=== PATIENT | male | born 1990 | race Caucasian/White ===

== ENCOUNTER 2016-11-16 15:43 | Emergency (ER) | payer BC ==
[2016-11-16 16:49] LABS: BASO % 0.1 % (0.0-1.0); EOS # 0.1 K/mm3 (0.0-0.50); EOS % 1.3 % (0.0-3.0); LARGE UNSTAINED CELL # 0.2 K/mm3 (0.0-0.4); LARGE UNSTAINED CELL % 1.8 % (0.0-4.0); LYMPH # 0.8 K/mm3 (1.5-6.5); MEAN CORPUSCULAR HEMOGLOBIN 27.4 pg (27.0-33.0); MEAN CORPUSCULAR HGB CONC 33.2 g/dl (32.0-36.5); MEAN CORPUSCULAR VOLUME 82.5 fl (80.0-96.0); MONO # 0.3 K/mm3 (0.0-0.8); MONO % 3.3 % (0.0-5.0); NEUTROPHILS # 7.2 K/mm3 (1.8-7.7); NEUTROPHILS % 84.5 % (36.0-66.0); PLATELET COUNT, AUTOMATED 177 k/mm3 (150-450); WHITE BLOOD COUNT 8.6 K/mm3 (4.0-10.0)
[2016-11-16 16:57] LABS: INR 1.18
--- NOTE | 2016-11-16 17:06 | REP ---
Duplex extremity venous ultrasound: Left lower extremity. History: Swelling of the left leg. Findings: The deep veins are anechoic and fully compressible from the groin to the popliteal fossa in the left lower extremity. Color flow imaging is homogeneous. Spectral Doppler interrogation demonstrates intact respiratory variation in flow and normal manual augmentation of flow. There is no evidence of deep vein thrombosis. Scanning over the area of redness in the left mid anterior browning region shows soft tissue edema. No abnormal fluid collection seen. Impression: Negative left lower extremity duplex venous ultrasound. No evidence of deep vein thrombosis. Signed by Ravi Cifuentes MD 11/16/2016 04:58 P
[2016-11-16] MEDS ORDERED: CEFTAROLINE FOSAMIL 600 MG VIAL (TEFLARO) As Ordered ONE (17:12)
[2016-11-16 17:14] LABS: ANION GAP 8 MEQ/L (8-16); BLOOD UREA NITROGEN 23 MG/DL (7-18); CARBON DIOXIDE LEVEL 25 MEQ/L (21-32); CHLORIDE LEVEL 104 MEQ/L (98-107); CREATININE FOR GFR 1.05 MG/DL (0.70-1.30); GLOMERULAR FILTRATION RATE > 60.0 (>60); GLUCOSE, FASTING 98 MG/DL (70-105); POTASSIUM SERUM 3.6 MEQ/L (3.5-5.1); SODIUM LEVEL 137 MEQ/L (136-145)
--- NOTE | 2016-11-16 19:07 | EDDOCDS ---
Physician Documentation [facility] Name: Jony Chambers Age: 26 yrs Sex: Male : 1990 Arrival Date: 11/16/2016 Time: 15:43 Bed I2 / M2 Private MD: Mahendra Campos P. Disposition: 11/16/16 18:30 Discharged to Home/Self Care. Impression: Cellulitis of left lower limb. - Condition is Stable. - Discharge Instructions: Cellulitis, Hypertension. - Prescriptions for Keflex 500 mg Oral Capsule - take 1 capsule by ORAL route every 6 hours for 10 days; 39 capsule. Bactrim DS 800- 160 mg Oral Tablet - take 1 tablet by ORAL route every 12 hours for 10 days; 19 tablet. - Work Release Form - 3 day, Medication Reconciliation, Local Pharmacy Hours form. - Follow up: Mahendra Campos; When: 1 - 2 days; Reason: Recheck today's complaints. Follow up: Emergency Department; When: As needed; Reason: Recheck today's complaints, Worsening of conditions. - Problem is new. - Symptoms are unchanged. - Notes: have leg rechecked in the next 48 hrs. if you develop high fevers, vomiting, or expanding redness return immediately to ER Historical: - Allergies: no known allergies; - Home Meds: 1. tramadol 50 mg Oral tab 2-3 time daily 2. Tylenol 500mg Oral 2 tabs every 8 hours as needed 3. naproxen 500 mg Oral tab 1 tab 2 times per day - PMHx: Hypertension; - PSHx: none; - Social history: Smoking status: Patient uses tobacco products, current some day smoker. Patient uses No barriers to communication noted, The patient speaks fluent Burkinan, Speaks appropriately for age. - Family history: Not pertinent. - : The pt / caregiver states he / she is not on anticoagulants. Home medication list is obtained from the patient. - Exposure Risk Screening:: None identified. Vital Signs: 11/16 15:45 BP 171 / 79; Pulse 100; Resp 18 S; Temp 99.3(O); Pulse Ox 95% on R/A; Weight 127.46 kg gr2 / 281 lbs (R); Height 5 ft. 6 in. (167.64 cm) (R); Pain 5/10; 18:32 BP 163 / 73; Pulse 98; Resp 20; Temp 100.0(O); Pulse Ox 99% on R/A; Pain 0/10; jml1 15:45 Body Mass Index 45.35 (127.46 kg, 167.64 cm) gr2 MDM: 16:23 Undress patient appropriately for examination ordered. ar2 16:23 -Blood Culture (Adults Only), peripheral from different site, or from device/port/PICC ar2 etc. if present ordered. 16:23 IV Saline Lock ordered. ar2 16:24 CBC with Diff Ordered. EDMS 16:24 MED Profile Ordered. EDMS 16:24 Pt & Aptt Ordered. EDMS 16:24 -Blood Culture Ordered. EDMS 16:25 US Lower Extremity R/O DVT Ordered. EDMS 16:43 Financial registration complete. zo 16:49 [facility] Payment Agreement was scanned into [employer] and attached to record. zo 17:01 CBC with Diff Reviewed. ar2 17:01 Pt & Aptt Reviewed. ar2 17:02 -Blood Culture (Adults Only), peripheral from different site, or from device/port/PICC jml1 etc. if present complete. 17:02 Ceftaroline Fosamil 600 mg IV at calculated rate once over 30 mins; reconstitute with ar2 20mL NS or SW, then dilulte in 50mL of NS, D5W or LR ordered. 17:02 BLOOD CULTURES Ordered. EDMS 18:24 MED Profile Reviewed. ar2 18:24 US Lower Extremity R/O DVT Reviewed. ar2 Administered Medications: 17:25 Drug: Ceftaroline Fosamil 600 mg [ceftaroline fosamil 600 mg intravenous solution] kc3 Route: IV; Rate: calculated rate; Infused Over: 30 mins; Site: right antecubital; Signatures: Dispatcher [employer] EDMS Petros Hyatt RN RN Melanie You RN RN Usama Hays Aaron, PA-C PA-C ar2 Ryan Wahll1 Loly Duncan RN RN kc3 The chart was reviewed and I authenticate all verbal orders and agree with the evaluation and treatment provided.Attachments: 16:49 [facility] Payment Agreement zo MTDD
--- NOTE | 2016-11-16 19:07 | EDDOCDS ---
Nurse's Notes [facility] Name: Jony Chambers Age: 26 yrs Sex: Male : 1990 Arrival Date: 11/16/2016 Time: 15:43 Bed I2 / M2 Private MD: Mahendra Campos P. Diagnosis: Cellulitis of left lower limb Presentation: 11/16 15:51 Presenting complaint: Patient states: Left leg swollen swollen and red. denies any jo3 resent travel or surgery. Came on suddenly. Adult Sepsis Screening: The patient does not have new or worsening altered mentation. Patient's respiratory rate is less than 22. Systolic blood pressure is greater than 100. Patient has a qSOFA score of 0- Negative Sepsis Screen. Suicide/Homicide risk assessment- the patient denies having any suicidal and/or homicidal ideations and does not present with any other emotional, behavioral or mental health complaints. Status: Patient is not a valet service attendant or dependent. Transition of care: patient was not received from another setting of care. 15:51 Acuity: LAURA Level 3 jo3 15:51 Method Of Arrival: Walkin/Carried/Asstd jo3 Triage Assessment: 15:54 General: Appears in no apparent distress, Behavior is appropriate for age, cooperative. jo3 Pain: Pain currently is 4 out of 10 on a pain scale. Pt Declines HIV testing. Neurological: Level of Consciousness is awake, alert, Oriented to person, place, time. Respiratory: Airway is patent Respiratory effort is even, unlabored. Derm: left anterior calf red. Historical: - Allergies: no known allergies; - Home Meds: 1. tramadol 50 mg Oral tab 2-3 time daily 2. Tylenol 500mg Oral 2 tabs every 8 hours as needed 3. naproxen 500 mg Oral tab 1 tab 2 times per day - PMHx: Hypertension; - PSHx: none; - Social history: Smoking status: Patient uses tobacco products, current some day smoker. Patient uses No barriers to communication noted, The patient speaks fluent Lao, Speaks appropriately for age. - Family history: Not pertinent. - : The pt / caregiver states he / she is not on anticoagulants. Home medication list is obtained from the patient. - Exposure Risk Screening:: None identified. Screenin:43 Screening information is obtained from the patient. Fall risk: No risks identified. kc3 Assistance ADL's: requires no assistance with activities of daily living. Abuse/DV Screen: The patient / caregiver reports he/she is: not in a situation that causes fear, pain or injury. Nutritional screening: No deficits noted. Advance Directives: Currently, there is no health care proxy. There is a living will, but a copy is not available at this time. home support is adequate. Assessment: 16:42 General: Appears in no apparent distress, comfortable, Behavior is appropriate for age, kc3 cooperative. Pain: Location: left leg Pain currently is 4 out of 10 on a pain scale. Neurological: Level of Consciousness is awake, alert, obeys commands, Oriented to person, place, time. Respiratory: Airway is patent Respiratory effort is even, unlabored. Derm: Rash noted that is itchy, red, on left quadriceps and left browning. Musculoskeletal: Circulation, motion, and sensation intact. Vital Signs: 15:45 BP 171 / 79; Pulse 100; Resp 18 S; Temp 99.3(O); Pulse Ox 95% on R/A; Weight 127.46 kg gr2 (R); Height 5 ft. 6 in. (167.64 cm) (R); Pain 5/10; 18:32 BP 163 / 73; Pulse 98; Resp 20; Temp 100.0(O); Pulse Ox 99% on R/A; Pain 0/10; jml1 15:45 Body Mass Index 45.35 (127.46 kg, 167.64 cm) gr2 Vitals: 15:45 Log In Time: November 16, 2016 at 15:45. gr2 ED Course: 15:45 Patient visited by Genie Patton. gr2 15:45 Mahendra Campos is Private Physician. gr2 15:45 Patient moved to Waiting gr2 15:46 Patient visited by Genie Patton. gr2 15:46 Patient moved to Pre RCE gr2 15:52 Triage Initiated jo3 15:56 Patient visited by Melanie Mora RN. jo3 15:56 Patient moved to Triage 1 jo3 16:15 [facility] ar2 16:15 Sander Soto MD is Attending Physician. ar2 16:16 Patient visited by Zander Stevenson PA-C. ar2 16:23 Patient moved to I2 / M2 nb2 16:41 -Blood Culture Sent. kc3 16:41 Pt & Aptt Sent. kc3 16:41 MED Profile Sent. kc3 16:41 CBC with Diff Sent. kc3 16:42 Patient moved to Ultrasound hgl 16:43 The patient / caregiver is instructed regarding the plan of care and ED course. kc3 16:43 Inserted saline lock: 20 gauge in right antecubital area and blood collected. The kc3 patient tolerated the procedure well. Labs drawn. (by ED staff). Sent per order to lab. Labs/Blood culture drawn. 16:49 [facility] Payment Agreement was scanned into [employer] and attached to record. zo 16:54 Patient moved to I2 / M2 hgl 17:00 Patient visited by Loly Duncan RN. kc3 17:12 BLOOD CULTURES Sent. jml1 17:16 US Lower Extremity R/O DVT Returned. EDMS 18:14 Patient visited by Ryan Wahl. jml1 18:29 Mahendra Campos is Referral Physician. ar2 18:33 Patient visited by Ryan Wahl. jml1 19:05 Discontinued lock intact, bleeding controlled, pressure dressing applied, No jmk redness/swelling at site. No procedures done that require assistance. Administered Medications: 17:25 Drug: Ceftaroline Fosamil 600 mg [ceftaroline fosamil 600 mg intravenous solution] [facility] Route: IV; Rate: calculated rate; Infused Over: 30 mins; Site: right antecubital; Order Results: Lab Order: CBC with Diff; SPEC'M 11/16/16 16:39 Test: WHITE BLOOD COUNT; Value: 8.6; Range: 4.0-10.0; Units: K/mm3; Status: F Test: RED BLOOD COUNT; Value: 5.37; Range: 4.30-6.10; Units: M/mm3; Status: F Test: HEMOGLOBIN; Value: 14.7; Range: 14.0-18.0; Units: g/dl; Status: F Test: HEMATOCRIT; Value: 44.3; Range: 42.0-52.0; Units: %; Status: F Test: MEAN CORPUSCULAR VOLUME; Value: 82.5; Range: 80.0-96.0; Units: fl; Status: F Test: MEAN CORPUSCULAR HEMOGLOBIN; Value: 27.4; Range: 27.0-33.0; Units: pg; Status: F Test: MEAN CORPUSCULAR HGB CONC; Value: 33.2; Range: 32.0-36.5; Units: g/dl; Status: F Test: RED CELL DISTRIBUTION WIDTH; Value: 13.0; Range: 11.5-14.5; Units: %; Status: F Test: PLATELET COUNT, AUTOMATED; Value: 177; Range: 150-450; Units: k/mm3; Status: F Test: NEUTROPHILS %; Value: 84.5; Range: 36.0-66.0; Abnormal: Above high normal; Units: %; Status: F Test: LYMPH %; Value: 9.0; Range: 24.0-44.0; Abnormal: Below low normal; Units: %; Status: F Test: MONO %; Value: 3.3; Range: 0.0-5.0; Units: %; Status: F Test: EOS %; Value: 1.3; Range: 0.0-3.0; Units: %; Status: F Test: BASO %; Value: 0.1; Range: 0.0-1.0; Units: %; Status: F Test: LARGE UNSTAINED CELL %; Value: 1.8; Range: 0.0-4.0; Units: %; Status: F Test: NEUTROPHILS #; Value: 7.2; Range: 1.8-7.7; Units: K/mm3; Status: F Test: LYMPH #; Value: 0.8; Range: 1.5-6.5; Abnormal: Below low normal; Units: K/mm3; Status: F Test: MONO #; Value: 0.3; Range: 0.0-0.8; Units: K/mm3; Status: F Test: EOS #; Value: 0.1; Range: 0.0-0.50; Units: K/mm3; Status: F Test: BASO #; Value: 0.0; Range: 0.0-0.2; Units: K/mm3; Status: F Test: LARGE UNSTAINED CELL #; Value: 0.2; Range: 0.0-0.4; Units: K/mm3; Status: F Lab Order: MED Profile; SPEC'M 11/16/16 16:39 Test: GLUCOSE, FASTING; Value: 98; Range: 70-105; Units: MG/DL; Status: F Test: BLOOD UREA NITROGEN; Value: 23; Range: 7-18; Abnormal: Above high normal; Units: MG/DL; Status: F Test: CREATININE FOR GFR; Value: 1.05; Range: 0.70-1.30; Units: MG/DL; Status: F Test: GLOMERULAR FILTRATION RATE; Value: > 60.0; Range: >60; Status: F Test: SODIUM LEVEL; Value: 137; Range: 136-145; Units: MEQ/L; Status: F Test: POTASSIUM SERUM; Value: 3.6; Range: 3.5-5.1; Units: MEQ/L; Status: F Test: CHLORIDE LEVEL; Value: 104; Range: 98-107; Units: MEQ/L; Status: F Test: CARBON DIOXIDE LEVEL; Value: 25; Range: 21-32; Units: MEQ/L; Status: F Test: ANION GAP; Value: 8; Range: 8-16; Units: MEQ/L; Status: F Test: CALCIUM LEVEL; Value: 9.0; Range: 8.5-10.1; Units: MG/DL; Status: F Test Note: ; Units are mL/min/1.73 m2 Chronic Kidney Disease Staging per NKF: Stage I & II GFR >=60 Normal to Mildly Decreased Stage III GFR 30-59 Moderately Decreased Stage IV GFR 15-29 Severely Decreased Stage V GFR <15 Very Little GFR Left ESRD GFR <15 on DEVULCANIZER OPERATOR Lab Order: Pt & Aptt; SPEC11/16/16 16:38 Test: PROTHROMBIN TIME; Value: 15.1; Range: 12.3-14.5; Abnormal: Above high normal; Units: SECONDS; Status: F Test: INR; Value: 1.18; Status: F Test: PARTIAL THROMBOPLASTIN TIME; Value: 32.8; Range: 26.6-37.1; Units: SECONDS; Status: F Test Note: ; THERAPUTIC HUMAN INR VALUES INDICATIONS NORMAL RANGES PROPHYLAXIS/TREATMENT OF: VENOUS THROMBOSIS 2.0-3.0 PULMONARY EMBOLISM 2.0-3.0 PREVENTION OF SYSTEMIC EMBOLISM FROM: TISSUE HEART VALVES 2.0-3.0 ACUTE MYOCARDIAL INFARCTION 2.0-3.0 VALVULAR HEART DISEASE 2.0-3.0 ATRIAL FIBRILLATION 2.0-3.0 MECHANICAL VALVES(HIGH RISK) 2.5-3.5 RECURRENT MYOCARDIAL INFARCTION 2.5-3.5 Radiology Order: US Lower Extremity R/O DVT Test: US Lower Extremity R/O DVT REASON FOR EXAMINATION: pain, swelling; Duplex extremity venous ultrasound: Left lower extremity.; ; History: Swelling of the left leg.; ; Findings: The deep veins are anechoic and fully compressible from the groin to; the popliteal fossa in the left lower extremity. Color flow imaging is; homogeneous. Spectral Doppler interrogation demonstrates intact respiratory; variation in flow and normal manual augmentation of flow. There is no evidence; of deep vein thrombosis. Scanning over the area of redness in the left mid; anterior browning region shows soft tissue edema. No abnormal fluid collection; seen.; ; Impression:; ; Negative left lower extremity duplex venous ultrasound. No evidence of deep vein; thrombosis.; ; ; Signed by; Ravi Cifuentes MD 11/16/2016 04:58 P; Outcome: 18:30 Discharge ordered by Provider. ar2 19:05 Discharge Assessment: Patient awake, alert and oriented x 3. No cognitive and/or k functional deficits noted. Patient verbalized understanding of disposition instructions. patient administered narcotics - no. The following High Risk Discharge criteria are identified: None. Discharged to home ambulatory. Condition: good. Discharge instructions given to patient. No special radiology studies were completed. Property :Personal belongings accompany Pt. 19:06 Patient left the ED. juan miguel Signatures: Dispatcher [employer] EDPetros Robert RN RN jmk Helmerci, Jennifer, RN RN Usama Hays Aaron, PA-C PA-C ar2 Ryan Wahl jml1 Nicol, Sánchez dailyl Genie Patton2 Loly Duncan,LUH RN lamar3 Vanessa Shaw MTDD
--- NOTE | 2016-11-18 20:07 | EDDOCDS ---
Physician Documentation [facility] Name: Jony Chambers Age: 26 yrs Sex: Male : 1990 Arrival Date: 11/16/2016 Time: 15:43 Bed I2 / M2 Private MD: Mahendra Campos P. Disposition: 11/16/16 18:30 Discharged to Home/Self Care. Impression: Cellulitis of left lower limb. - Condition is Stable. - Discharge Instructions: Cellulitis, Hypertension. - Prescriptions for Keflex 500 mg Oral Capsule - take 1 capsule by ORAL route every 6 hours for 10 days; 39 capsule. Bactrim DS 800- 160 mg Oral Tablet - take 1 tablet by ORAL route every 12 hours for 10 days; 19 tablet. - Work Release Form - 3 day, Medication Reconciliation, Local Pharmacy Hours form. - Follow up: Mahendra Campos; When: 1 - 2 days; Reason: Recheck today's complaints. Follow up: Emergency Department; When: As needed; Reason: Recheck today's complaints, Worsening of conditions. - Problem is new. - Symptoms are unchanged. - Notes: have leg rechecked in the next 48 hrs. if you develop high fevers, vomiting, or expanding redness return immediately to ER Historical: - Allergies: no known allergies; - Home Meds: 1. tramadol 50 mg Oral tab 2-3 time daily 2. Tylenol 500mg Oral 2 tabs every 8 hours as needed 3. naproxen 500 mg Oral tab 1 tab 2 times per day - PMHx: Hypertension; - PSHx: none; - Social history: Smoking status: Patient uses tobacco products, current some day smoker. Patient uses No barriers to communication noted, The patient speaks fluent Polish, Speaks appropriately for age. - Family history: Not pertinent. - : The pt / caregiver states he / she is not on anticoagulants. Home medication list is obtained from the patient. - Exposure Risk Screening:: None identified. Vital Signs: 11/16 15:45 BP 171 / 79; Pulse 100; Resp 18 S; Temp 99.3(O); Pulse Ox 95% on R/A; Weight 127.46 kg gr2 / 281 lbs (R); Height 5 ft. 6 in. (167.64 cm) (R); Pain 5/10; 18:32 BP 163 / 73; Pulse 98; Resp 20; Temp 100.0(O); Pulse Ox 99% on R/A; Pain 0/10; jml1 15:45 Body Mass Index 45.35 (127.46 kg, 167.64 cm) gr2 MDM: 16:23 Undress patient appropriately for examination ordered. ar2 16:23 -Blood Culture (Adults Only), peripheral from different site, or from device/port/PICC ar2 etc. if present ordered. 16:23 IV Saline Lock ordered. ar2 16:24 CBC with Diff Ordered. EDMS 16:24 MED Profile Ordered. EDMS 16:24 Pt & Aptt Ordered. EDMS 16:24 -Blood Culture Ordered. EDMS 16:25 US Lower Extremity R/O DVT Ordered. EDMS 16:43 Financial registration complete. zo 16:49 [facility] Payment Agreement was scanned into [employer] and attached to record. zo 17:01 CBC with Diff Reviewed. ar2 17:01 Pt & Aptt Reviewed. ar2 17:02 -Blood Culture (Adults Only), peripheral from different site, or from device/port/PICC jml1 etc. if present complete. 17:02 Ceftaroline Fosamil 600 mg IV at calculated rate once over 30 mins; reconstitute with ar2 20mL NS or SW, then dilulte in 50mL of NS, D5W or LR ordered. 17:02 BLOOD CULTURES Ordered. EDMS 18:24 MED Profile Reviewed. ar2 18:24 US Lower Extremity R/O DVT Reviewed. ar2 11/17 11:03 T-Sheet-- Draft Copy was scanned into [employer] and attached to record. gb 11:03 Radiology Report was scanned into [employer] and attached to record. gb Administered Medications: 11/16 17:25 Drug: Ceftaroline Fosamil 600 mg [ceftaroline fosamil 600 mg intravenous solution] kc3 Route: IV; Rate: calculated rate; Infused Over: 30 mins; Site: right antecubital; Signatures: Dispatcher [employer] Petros Morillo,RN RN Yudi Jade, Reg Reg Melanie Chirstian RN RN jo3 Usama Eason Aaron, PA-C PABhavana ar2 Ryan Wahl jml1 Duncan,Loly,RN RN kc3 The chart was reviewed and I authenticate all verbal orders and agree with the evaluation and treatment provided.Attachments: 16:49 [facility] Payment Agreement zo 11/17 11:03 T-Sheet-- Draft Copy gb Chart Complete MTDD
--- NOTE | 2016-11-18 20:07 | EDDOCDS ---
Nurse's Notes [facility] Name: Jony Chambers Age: 26 yrs Sex: Male : 1990 Arrival Date: 11/16/2016 Time: 15:43 Bed I2 / M2 Private MD: Mahendra Campos P. Diagnosis: Cellulitis of left lower limb Presentation: 11/16 15:51 Presenting complaint: Patient states: Left leg swollen swollen and red. denies any jo3 resent travel or surgery. Came on suddenly. Adult Sepsis Screening: The patient does not have new or worsening altered mentation. Patient's respiratory rate is less than 22. Systolic blood pressure is greater than 100. Patient has a qSOFA score of 0- Negative Sepsis Screen. Suicide/Homicide risk assessment- the patient denies having any suicidal and/or homicidal ideations and does not present with any other emotional, behavioral or mental health complaints. Status: Patient is not a equipment service engineer or dependent. Transition of care: patient was not received from another setting of care. 15:51 Acuity: LAURA Level 3 jo3 15:51 Method Of Arrival: Walkin/Carried/Asstd jo3 Triage Assessment: 15:54 General: Appears in no apparent distress, Behavior is appropriate for age, cooperative. jo3 Pain: Pain currently is 4 out of 10 on a pain scale. Pt Declines HIV testing. Neurological: Level of Consciousness is awake, alert, Oriented to person, place, time. Respiratory: Airway is patent Respiratory effort is even, unlabored. Derm: left anterior calf red. Historical: - Allergies: no known allergies; - Home Meds: 1. tramadol 50 mg Oral tab 2-3 time daily 2. Tylenol 500mg Oral 2 tabs every 8 hours as needed 3. naproxen 500 mg Oral tab 1 tab 2 times per day - PMHx: Hypertension; - PSHx: none; - Social history: Smoking status: Patient uses tobacco products, current some day smoker. Patient uses No barriers to communication noted, The patient speaks fluent Upper Sorbian, Speaks appropriately for age. - Family history: Not pertinent. - : The pt / caregiver states he / she is not on anticoagulants. Home medication list is obtained from the patient. - Exposure Risk Screening:: None identified. Screenin:43 Screening information is obtained from the patient. Fall risk: No risks identified. kc3 Assistance ADL's: requires no assistance with activities of daily living. Abuse/DV Screen: The patient / caregiver reports he/she is: not in a situation that causes fear, pain or injury. Nutritional screening: No deficits noted. Advance Directives: Currently, there is no health care proxy. There is a living will, but a copy is not available at this time. home support is adequate. Assessment: 16:42 General: Appears in no apparent distress, comfortable, Behavior is appropriate for age, kc3 cooperative. Pain: Location: left leg Pain currently is 4 out of 10 on a pain scale. Neurological: Level of Consciousness is awake, alert, obeys commands, Oriented to person, place, time. Respiratory: Airway is patent Respiratory effort is even, unlabored. Derm: Rash noted that is itchy, red, on left quadriceps and left browning. Musculoskeletal: Circulation, motion, and sensation intact. Vital Signs: 15:45 BP 171 / 79; Pulse 100; Resp 18 S; Temp 99.3(O); Pulse Ox 95% on R/A; Weight 127.46 kg gr2 (R); Height 5 ft. 6 in. (167.64 cm) (R); Pain 5/10; 18:32 BP 163 / 73; Pulse 98; Resp 20; Temp 100.0(O); Pulse Ox 99% on R/A; Pain 0/10; jml1 15:45 Body Mass Index 45.35 (127.46 kg, 167.64 cm) gr2 Vitals: 15:45 Log In Time: November 16, 2016 at 15:45. gr2 ED Course: 15:45 Patient visited by Genie Patton. gr2 15:45 Mahendra Campos is Private Physician. gr2 15:45 Patient moved to Waiting gr2 15:46 Patient visited by Genie Patton. gr2 15:46 Patient moved to Pre RCE gr2 15:52 Triage Initiated jo3 15:56 Patient visited by Melanie Mora RN. jo3 15:56 Patient moved to Triage 1 jo3 16:15 [facility] ar2 16:15 Sander Soto MD is Attending Physician. ar2 16:16 Patient visited by Zander Stevenson PA-C. ar2 16:23 Patient moved to I2 / M2 nb2 16:41 -Blood Culture Sent. kc3 16:41 Pt & Aptt Sent. kc3 16:41 MED Profile Sent. kc3 16:41 CBC with Diff Sent. kc3 16:42 Patient moved to Ultrasound hgl 16:43 The patient / caregiver is instructed regarding the plan of care and ED course. kc3 16:43 Inserted saline lock: 20 gauge in right antecubital area and blood collected. The kc3 patient tolerated the procedure well. Labs drawn. (by ED staff). Sent per order to lab. Labs/Blood culture drawn. 16:49 [facility] [place] Payment Agreement was scanned into [employer] and attached to record. zo 16:54 Patient moved to I2 / M2 hgl 17:00 Patient visited by Loly Duncan RN. kc3 17:12 BLOOD CULTURES Sent. jml1 17:16 US Lower Extremity R/O DVT Returned. EDMS 18:14 Patient visited by Ryan Wahl. jml1 18:29 Mahendra Campos is Referral Physician. ar2 18:33 Patient visited by Ryan Wahl. jml1 19:05 Discontinued lock intact, bleeding controlled, pressure dressing applied, No jmk redness/swelling at site. No procedures done that require assistance. 11/17 11:03 T-Sheet-- Draft Copy was scanned into [employer] and attached to record. gb 11:03 Radiology Report was scanned into [employer] and attached to record. gb Administered Medications: 11/16 17:25 Drug: Ceftaroline Fosamil 600 mg [ceftaroline fosamil 600 mg intravenous solution] [facility] Route: IV; Rate: calculated rate; Infused Over: 30 mins; Site: right antecubital; Order Results: Lab Order: CBC with Diff; SPEC'M 11/16/16 16:39 Test: WHITE BLOOD COUNT; Value: 8.6; Range: 4.0-10.0; Units: K/mm3; Status: F Test: RED BLOOD COUNT; Value: 5.37; Range: 4.30-6.10; Units: M/mm3; Status: F Test: HEMOGLOBIN; Value: 14.7; Range: 14.0-18.0; Units: g/dl; Status: F Test: HEMATOCRIT; Value: 44.3; Range: 42.0-52.0; Units: %; Status: F Test: MEAN CORPUSCULAR VOLUME; Value: 82.5; Range: 80.0-96.0; Units: fl; Status: F Test: MEAN CORPUSCULAR HEMOGLOBIN; Value: 27.4; Range: 27.0-33.0; Units: pg; Status: F Test: MEAN CORPUSCULAR HGB CONC; Value: 33.2; Range: 32.0-36.5; Units: g/dl; Status: F Test: RED CELL DISTRIBUTION WIDTH; Value: 13.0; Range: 11.5-14.5; Units: %; Status: F Test: PLATELET COUNT, AUTOMATED; Value: 177; Range: 150-450; Units: k/mm3; Status: F Test: NEUTROPHILS %; Value: 84.5; Range: 36.0-66.0; Abnormal: Above high normal; Units: %; Status: F Test: LYMPH %; Value: 9.0; Range: 24.0-44.0; Abnormal: Below low normal; Units: %; Status: F Test: MONO %; Value: 3.3; Range: 0.0-5.0; Units: %; Status: F Test: EOS %; Value: 1.3; Range: 0.0-3.0; Units: %; Status: F Test: BASO %; Value: 0.1; Range: 0.0-1.0; Units: %; Status: F Test: LARGE UNSTAINED CELL %; Value: 1.8; Range: 0.0-4.0; Units: %; Status: F Test: NEUTROPHILS #; Value: 7.2; Range: 1.8-7.7; Units: K/mm3; Status: F Test: LYMPH #; Value: 0.8; Range: 1.5-6.5; Abnormal: Below low normal; Units: K/mm3; Status: F Test: MONO #; Value: 0.3; Range: 0.0-0.8; Units: K/mm3; Status: F Test: EOS #; Value: 0.1; Range: 0.0-0.50; Units: K/mm3; Status: F Test: BASO #; Value: 0.0; Range: 0.0-0.2; Units: K/mm3; Status: F Test: LARGE UNSTAINED CELL #; Value: 0.2; Range: 0.0-0.4; Units: K/mm3; Status: F Lab Order: MED Profile; SPEC'M 11/16/16 16:39 Test: GLUCOSE, FASTING; Value: 98; Range: 70-105; Units: MG/DL; Status: F Test: BLOOD UREA NITROGEN; Value: 23; Range: 7-18; Abnormal: Above high normal; Units: MG/DL; Status: F Test: CREATININE FOR GFR; Value: 1.05; Range: 0.70-1.30; Units: MG/DL; Status: F Test: GLOMERULAR FILTRATION RATE; Value: > 60.0; Range: >60; Status: F Test: SODIUM LEVEL; Value: 137; Range: 136-145; Units: MEQ/L; Status: F Test: POTASSIUM SERUM; Value: 3.6; Range: 3.5-5.1; Units: MEQ/L; Status: F Test: CHLORIDE LEVEL; Value: 104; Range: 98-107; Units: MEQ/L; Status: F Test: CARBON DIOXIDE LEVEL; Value: 25; Range: 21-32; Units: MEQ/L; Status: F Test: ANION GAP; Value: 8; Range: 8-16; Units: MEQ/L; Status: F Test: CALCIUM LEVEL; Value: 9.0; Range: 8.5-10.1; Units: MG/DL; Status: F Test Note: ; Units are mL/min/1.73 m2 Chronic Kidney Disease Staging per NKF: Stage I & II GFR >=60 Normal to Mildly Decreased Stage III GFR 30-59 Moderately Decreased Stage IV GFR 15-29 Severely Decreased Stage V GFR <15 Very Little GFR Left ESRD GFR <15 on [place] Lab Order: Pt & Aptt; SPEC'M 11/16/16 16:38 Test: PROTHROMBIN TIME; Value: 15.1; Range: 12.3-14.5; Abnormal: Above high normal; Units: SECONDS; Status: F Test: INR; Value: 1.18; Status: F Test: PARTIAL THROMBOPLASTIN TIME; Value: 32.8; Range: 26.6-37.1; Units: SECONDS; Status: F Test Note: ; THERAPUTIC HUMAN INR VALUES INDICATIONS NORMAL RANGES PROPHYLAXIS/TREATMENT OF: VENOUS THROMBOSIS 2.0-3.0 PULMONARY EMBOLISM 2.0-3.0 PREVENTION OF SYSTEMIC EMBOLISM FROM: TISSUE HEART VALVES 2.0-3.0 ACUTE MYOCARDIAL INFARCTION 2.0-3.0 VALVULAR HEART DISEASE 2.0-3.0 ATRIAL FIBRILLATION 2.0-3.0 MECHANICAL VALVES(HIGH RISK) 2.5-3.5 RECURRENT MYOCARDIAL INFARCTION 2.5-3.5 Lab Order: -Blood Culture; SPEC' 11/16/16 16:38 Test: BLOOD CULTURE; Value: No growth after 24 hours . All specimens observed; Status: F Test: BLOOD CULTURE; Value: for 5 days. Results final at that time.; Status: F Test: BLOOD CULTURE; Value: No Growth after 48 hours. All Specimens observed; Status: F Test: BLOOD CULTURE; Value: for 7 days. Results final at that time.; Status: F Lab Order: BLOOD CULTURES; SPEC' 11/16/16 17:07 Test: BLOOD CULTURE; Value: No growth after 24 hours . All specimens observed; Status: F Test: BLOOD CULTURE; Value: for 5 days. Results final at that time.; Status: F Test: BLOOD CULTURE; Value: No Growth after 48 hours. All Specimens observed; Status: F Test: BLOOD CULTURE; Value: for 7 days. Results final at that time.; Status: F Radiology Order: US Lower Extremity R/O DVT Test: US Lower Extremity R/O DVT REASON FOR EXAMINATION: pain, swelling; Duplex extremity venous ultrasound: Left lower extremity.; ; History: Swelling of the left leg.; ; Findings: The deep veins are anechoic and fully compressible from the groin to; the popliteal fossa in the left lower extremity. Color flow imaging is; homogeneous. Spectral Doppler interrogation demonstrates intact respiratory; variation in flow and normal manual augmentation of flow. There is no evidence; of deep vein thrombosis. Scanning over the area of redness in the left mid; anterior browning region shows soft tissue edema. No abnormal fluid collection; seen.; ; Impression:; ; Negative left lower extremity duplex venous ultrasound. No evidence of deep vein; thrombosis.; ; ; Signed by; Ravi Cifuentes MD 11/16/2016 04:58 P; Outcome: 18:30 Discharge ordered by Provider. ar2 19:05 Discharge Assessment: Patient awake, alert and oriented x 3. No cognitive and/or jmk functional deficits noted. Patient verbalized understanding of disposition instructions. patient administered narcotics - no. The following High Risk Discharge criteria are identified: None. Discharged to home ambulatory. Condition: good. Discharge instructions given to patient. No special radiology studies were completed. Property :Personal belongings accompany Pt. 19:06 Patient left the ED. juan miguel Signatures: Dispatcher [employer] EDMS Petros Hyatt,LUH RN Yudi Jade, Reg Reg Melanie ChristianRN RN jo3 Usama Eason Aaron, PA-Brijesh PA-Brijesh ar2 Ryan Wahl jml1 Ly, Sánchez hgl Genie Patton gr2 Loly Duncan RN RN kc3 Vanessa Shaw nb2 Chart Complete SHAKIRA
--- NOTE | 2016-11-18 20:07 | EDDOCDS ---
Physician Documentation [facility] Name: Jony Chambers Age: 26 yrs Sex: Male : 1990 Arrival Date: 11/16/2016 Time: 15:43 Bed I2 / M2 Private MD: Mahendra Campos P. Disposition: 11/16/16 18:30 Discharged to Home/Self Care. Impression: Cellulitis of left lower limb. - Condition is Stable. - Discharge Instructions: Cellulitis, Hypertension. - Prescriptions for Keflex 500 mg Oral Capsule - take 1 capsule by ORAL route every 6 hours for 10 days; 39 capsule. Bactrim DS 800- 160 mg Oral Tablet - take 1 tablet by ORAL route every 12 hours for 10 days; 19 tablet. - Work Release Form - 3 day, Medication Reconciliation, Local Pharmacy Hours form. - Follow up: Mahendra Campos; When: 1 - 2 days; Reason: Recheck today's complaints. Follow up: Emergency Department; When: As needed; Reason: Recheck today's complaints, Worsening of conditions. - Problem is new. - Symptoms are unchanged. - Notes: have leg rechecked in the next 48 hrs. if you develop high fevers, vomiting, or expanding redness return immediately to ER Historical: - Allergies: no known allergies; - Home Meds: 1. tramadol 50 mg Oral tab 2-3 time daily 2. Tylenol 500mg Oral 2 tabs every 8 hours as needed 3. naproxen 500 mg Oral tab 1 tab 2 times per day - PMHx: Hypertension; - PSHx: none; - Social history: Smoking status: Patient uses tobacco products, current some day smoker. Patient uses No barriers to communication noted, The patient speaks fluent Bahraini, Speaks appropriately for age. - Family history: Not pertinent. - : The pt / caregiver states he / she is not on anticoagulants. Home medication list is obtained from the patient. - Exposure Risk Screening:: None identified. Vital Signs: 11/16 15:45 BP 171 / 79; Pulse 100; Resp 18 S; Temp 99.3(O); Pulse Ox 95% on R/A; Weight 127.46 kg gr2 / 281 lbs (R); Height 5 ft. 6 in. (167.64 cm) (R); Pain 5/10; 18:32 BP 163 / 73; Pulse 98; Resp 20; Temp 100.0(O); Pulse Ox 99% on R/A; Pain 0/10; jml1 15:45 Body Mass Index 45.35 (127.46 kg, 167.64 cm) gr2 MDM: 16:23 Undress patient appropriately for examination ordered. ar2 16:23 -Blood Culture (Adults Only), peripheral from different site, or from device/port/PICC ar2 etc. if present ordered. 16:23 IV Saline Lock ordered. ar2 16:24 CBC with Diff Ordered. EDMS 16:24 MED Profile Ordered. EDMS 16:24 Pt & Aptt Ordered. EDMS 16:24 -Blood Culture Ordered. EDMS 16:25 US Lower Extremity R/O DVT Ordered. EDMS 16:43 Financial registration complete. zo 16:49 [facility] Payment Agreement was scanned into [employer] and attached to record. zo 17:01 CBC with Diff Reviewed. ar2 17:01 Pt & Aptt Reviewed. ar2 17:02 -Blood Culture (Adults Only), peripheral from different site, or from device/port/PICC jml1 etc. if present complete. 17:02 Ceftaroline Fosamil 600 mg IV at calculated rate once over 30 mins; reconstitute with ar2 20mL NS or SW, then dilulte in 50mL of NS, D5W or LR ordered. 17:02 BLOOD CULTURES Ordered. EDMS 18:24 MED Profile Reviewed. ar2 18:24 US Lower Extremity R/O DVT Reviewed. ar2 11/17 11:03 T-Sheet-- Draft Copy was scanned into [employer] and attached to record. gb 11:03 Radiology Report was scanned into [employer] and attached to record. gb Administered Medications: 11/16 17:25 Drug: Ceftaroline Fosamil 600 mg [ceftaroline fosamil 600 mg intravenous solution] kc3 Route: IV; Rate: calculated rate; Infused Over: 30 mins; Site: right antecubital; Signatures: Dispatcher [employer] Petros Morillo,RN RN Yudi Jade, Reg Reg Melanie Christian RN RN jo3 Usama Eason Aaron, PA-C PABhavana ar2 Ryan Wahl jml1 Duncan,Loly,RN RN kc3 The chart was reviewed and I authenticate all verbal orders and agree with the evaluation and treatment provided.Attachments: 16:49 [facility] Payment Agreement zo 11/17 11:03 T-Sheet-- Draft Copy gb Chart Complete MTDD
== END 2016-11-16 19:06 | disposition home or self-care (01) ==
LOC: M ED 15:43
DX: L03.116 Cellulitis of left lower limb (principal); I10 Essential (primary) hypertension; F17.210 Nicotine dependence, cigarettes, uncomplicated; Z79.899 Other long term (current) drug therapy

== ENCOUNTER 2016-11-19 13:52 | Emergency (ER) | payer BC ==
[2016-11-19 15:27] LABS: BASO % 0.4 % (0.0-1.0); EOS # 0.2 K/mm3 (0.0-0.50); EOS % 3.8 % (0.0-3.0); LARGE UNSTAINED CELL # 0.2 K/mm3 (0.0-0.4); LARGE UNSTAINED CELL % 2.5 % (0.0-4.0); LYMPH # 1.2 K/mm3 (1.5-6.5); LYMPH % 16.4 % (24.0-44.0); MEAN CORPUSCULAR HEMOGLOBIN 27.1 pg (27.0-33.0); MEAN CORPUSCULAR VOLUME 82.1 fl (80.0-96.0); MONO # 0.5 K/mm3 (0.0-0.8); NEUTROPHILS # 4.4 K/mm3 (1.8-7.7); NEUTROPHILS % 68.9 % (36.0-66.0); PLATELET COUNT, AUTOMATED 262 k/mm3 (150-450); RED CELL DISTRIBUTION WIDTH 13.3 % (11.5-14.5); WHITE BLOOD COUNT 6.4 K/mm3 (4.0-10.0)
[2016-11-19 15:55] LABS: ERYTHROCYTE SEDIMENTATION RATE 45 mm/hr (0-15)
--- NOTE | 2016-11-19 16:43 | EDDOCDS ---
Physician Documentation [facility] Name: Jony Chambers Age: 26 yrs Sex: Male : 1990 Arrival Date: 11/19/2016 Time: 13:52 Bed I8 / 16 Private MD: Disposition: 11/19/16 16:01 Discharged to Home/Self Care. Impression: Cellulitis of left lower limb. - Condition is Stable. - Discharge Instructions: Cellulitis. - Medication Reconciliation, Local Pharmacy Hours form. - Follow up: Mahendra Campos; When: Keep your scheduled appointment on Monday; Reason: Recheck today's complaints, Continuance of care, To establish care. - Problem is an ongoing problem. - Symptoms are unchanged. - Notes: Return to the ED for worsening symptoms Historical: - Allergies: no known allergies; - Home Meds: 1. naproxen 500 mg Oral tab 1 tab 2 times per day 2. tramadol 50 mg Oral tab 2-3 time daily 3. Tylenol 500mg Oral 2 tabs every 8 hours as needed 4. Keflex Unknown Oral 1 cap 4 times per day (Last dose: 11/19/2016 11:00) 5. Bactrim DS 800-160 mg Oral tab 1 tab every 12 hours (Last dose: 11/19/2016 06:00) - PMHx: Hypertension; - PSHx: none; - Social history: Smoking status: Cigars No barriers to communication noted. - Family history: Not pertinent. - : The pt / caregiver states he / she is not on anticoagulants. Home medication list is obtained from the patient. - Exposure Risk Screening:: None identified. Vital Signs: 11/19 13:54 BP 149 / 84; Pulse 105; Resp 17; Temp 98.1(T); Pulse Ox 97% on R/A; Weight 122.92 kg / lr2 270.99 lbs (R); Height 5 ft. 6 in. (167.64 cm) (R); Pain 2/10; 16:42 BP 151 / 87; Pulse 86; Resp 18; Temp 98.7; Pulse Ox 97% on R/A; srm 13:54 Body Mass Index 43.74 (122.92 kg, 167.64 cm) lr2 MDM: 15:00 Misc. Nursing Order ordered. le 15:01 CBC with Diff Ordered. EDMS 15:01 ESR Ordered. EDMS 15:01 CRP Ordered. EDMS 15:51 Financial registration complete. gjb 15:56 [facility] Payment Agreement was scanned into [employer] and attached to record. gjb 15:56 CBC with Diff Reviewed. le 15:56 CRP Reviewed. le 15:57 ESR Reviewed. le Signatures: Dispatcher [employer] EDJoi Costello, Serena Hardy RN, OUTPATIENT CLERK OUTPATIENT CLERK Laverne Flores RN RN pml Hafner, Jane, RN RN [facility] Janie Fournier The chart was reviewed and I authenticate all verbal orders and agree with the evaluation and treatment provided.Attachments: 15:56 [facility] Payment Agreement [facility] MTDD
--- NOTE | 2016-11-19 16:43 | EDDOCDS ---
Nurse's Notes [facility] Name: Jony Chambers Age: 26 yrs Sex: Male : 1990 Arrival Date: 11/19/2016 Time: 13:52 Bed I8 / 16 Private MD: Diagnosis: Cellulitis of left lower limb Presentation: 11/19 13:55 Presenting complaint: Patient states: seen here Monday for cellulitis of left leg [facility] told to return if swelling got larger than marked areas and this morning noted enlargement of site. Adult Sepsis Screening: The patient does not have new or worsening altered mentation. Patient's respiratory rate is less than 22. Systolic blood pressure is greater than 100. Patient has a qSOFA score of 0- Negative Sepsis Screen. Suicide/Homicide risk assessment- the patient denies having any suicidal and/or homicidal ideations and does not present with any other emotional, behavioral or mental health complaints. 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 Transition of care: patient was not received from another setting of care. 13:55 Acuity: LAURA Level 3 [facility] 13:55 Method Of Arrival: Walkin/Carried/Asstd [facility] Triage Assessment: 13:57 General: Appears in no apparent distress, comfortable, Behavior is appropriate for age, [facility] cooperative, pleasant. Pain: Location: left leg Pain currently is 2 out of 10 on a pain scale. HIV screening NA for this visit Offered previously. Respiratory: Airway is patent Respiratory effort is even, unlabored, Respiratory pattern is regular, symmetrical. Derm: Skin is pink, warm & dry. Musculoskeletal: Range of motion intact in all extremities. Historical: - Allergies: no known allergies; - Home Meds: 1. naproxen 500 mg Oral tab 1 tab 2 times per day 2. tramadol 50 mg Oral tab 2-3 time daily 3. Tylenol 500mg Oral 2 tabs every 8 hours as needed 4. Keflex Unknown Oral 1 cap 4 times per day (Last dose: 11/19/2016 11:00) 5. Bactrim DS 800-160 mg Oral tab 1 tab every 12 hours (Last dose: 11/19/2016 06:00) - PMHx: Hypertension; - PSHx: none; - Social history: Smoking status: Cigars No barriers to communication noted. - Family history: Not pertinent. - : The pt / caregiver states he / she is not on anticoagulants. Home medication list is obtained from the patient. - Exposure Risk Screening:: None identified. Screenin:10 Screening information is obtained from the patient. Fall risk: No risks identified. pml Assistance ADL's: requires no assistance with activities of daily living. Abuse/DV Screen: The patient / caregiver reports he/she is: not in a situation that causes fear, pain or injury. Nutritional screening: No deficits noted. Advance Directives: Currently, there is no health care proxy. home support is adequate. Assessment: 15:10 General: Appears in no apparent distress, Behavior is appropriate for age, cooperative. pml Pain: Location: left leg Pain currently is 2 out of 10 on a pain scale. Quality of pain is described as tight. Neurological: Level of Consciousness is awake, alert, Oriented to person, place, time. Cardiovascular: Capillary refill < 3 seconds Edema is 1+ to left midcalf. Respiratory: Airway is patent Respiratory effort is even, unlabored, Respiratory pattern is regular, symmetrical. GI: Abdomen is non- distended obese. Derm: Skin is pink, warm & dry. redness and dusky to right mid calf, extending beyond regions marked on Monday, no drainage noted. 16:42 General: Appears in no apparent distress, Behavior is appropriate for age, cooperative. srm Pain: Pain currently is 2 out of 10 on a pain scale. Vital Signs: 13:54 BP 149 / 84; Pulse 105; Resp 17; Temp 98.1(T); Pulse Ox 97% on R/A; Weight 122.92 kg lr2 (R); Height 5 ft. 6 in. (167.64 cm) (R); Pain 2/10; 16:42 BP 151 / 87; Pulse 86; Resp 18; Temp 98.7; Pulse Ox 97% on R/A; srm 13:54 Body Mass Index 43.74 (122.92 kg, 167.64 cm) lr2 Vitals: 13:54 Log In Time: November 19, 2016 at 13:52. lr2 ED Course: 13:53 Patient visited by Yulisa Mariano. lr2 13:53 Patient moved to Waiting lr2 13:54 Patient moved to Pre RCE lr2 13:56 Triage Initiated [facility] 14:42 Patient moved to I8 / 16 [facility] 14:43 [facility] le 14:54 Patient visited by Serena Vincent FNP. le 14:54 Patient visited by Sreena Vincent FNP. le 15:10 The patient / caregiver is instructed regarding the plan of care and ED course. Patient megha has correct armband on for positive identification. Placed in gown. Bed in low position. Call light in reach. Side rails up X2. 15:10 Inserted peripheral IV: 20gauge IV in left forearm and blood collected. Patient pml tolerated the procedure well. 15:12 Patient visited by Laverne Weaver RN. pml 15:56 [facility] Payment Agreement was scanned into [employer] and attached to record. gjb 16:01 Mahendra Campos is Referral Physician. le 16:42 Discontinued lock intact, bleeding controlled, pressure dressing applied, No srm redness/swelling at site. No procedures done that require assistance. Order Results: Lab Order: CBC with Diff; SPEC'M 11/19/16 15:08 Test: WHITE BLOOD COUNT; Value: 6.4; Range: 4.0-10.0; Units: K/mm3; Status: F Test: RED BLOOD COUNT; Value: 5.26; Range: 4.30-6.10; Units: M/mm3; Status: F Test: HEMOGLOBIN; Value: 14.2; Range: 14.0-18.0; Units: g/dl; Status: F Test: HEMATOCRIT; Value: 43.1; Range: 42.0-52.0; Units: %; Status: F Test: MEAN CORPUSCULAR VOLUME; Value: 82.1; Range: 80.0-96.0; Units: fl; Status: F Test: MEAN CORPUSCULAR HEMOGLOBIN; Value: 27.1; Range: 27.0-33.0; Units: pg; Status: F Test: MEAN CORPUSCULAR HGB CONC; Value: 33.0; Range: 32.0-36.5; Units: g/dl; Status: F Test: RED CELL DISTRIBUTION WIDTH; Value: 13.3; Range: 11.5-14.5; Units: %; Status: F Test: PLATELET COUNT, AUTOMATED; Value: 262; Range: 150-450; Units: k/mm3; Status: F Test: NEUTROPHILS %; Value: 68.9; Range: 36.0-66.0; Abnormal: Above high normal; Units: %; Status: F Test: LYMPH %; Value: 16.4; Range: 24.0-44.0; Abnormal: Below low normal; Units: %; Status: F Test: MONO %; Value: 8.0; Range: 0.0-5.0; Abnormal: Above high normal; Units: %; Status: F Test: EOS %; Value: 3.8; Range: 0.0-3.0; Abnormal: Above high normal; Units: %; Status: F Test: BASO %; Value: 0.4; Range: 0.0-1.0; Units: %; Status: F Test: LARGE UNSTAINED CELL %; Value: 2.5; Range: 0.0-4.0; Units: %; Status: F Test: NEUTROPHILS #; Value: 4.4; Range: 1.8-7.7; Units: K/mm3; Status: F Test: LYMPH #; Value: 1.2; Range: 1.5-6.5; Abnormal: Below low normal; Units: K/mm3; Status: F Test: MONO #; Value: 0.5; Range: 0.0-0.8; Units: K/mm3; Status: F Test: EOS #; Value: 0.2; Range: 0.0-0.50; Units: K/mm3; Status: F Test: BASO #; Value: 0.0; Range: 0.0-0.2; Units: K/mm3; Status: F Test: LARGE UNSTAINED CELL #; Value: 0.2; Range: 0.0-0.4; Units: K/mm3; Status: F Lab Order: ESR; SPEC'M 11/19/16 15:08 Test: ERYTHROCYTE SEDIMENTATION RATE; Value: 45; Range: 0-15; Abnormal: Above high normal; Units: mm/hr; Status: F Lab Order: CRP; SPEC'M 11/19/16 15:08 Test: C REACTIVE PROTEIN QUANTITATIV; Value: 8.96; Range: 0.00-0.30; Abnormal: Above high normal; Units: MG/DL; Status: F Outcome: 16:01 Discharge ordered by Provider. 16:42 Discharge Assessment: Patient awake, alert and oriented x 3. No cognitive and/or srm functional deficits noted. Patient verbalized understanding of disposition instructions. patient administered narcotics - no. The following High Risk Discharge criteria are identified: None. Discharged to home ambulatory. Condition: good Condition: stable. Discharge instructions given to patient, Instructed on discharge instructions, follow up and referral plans. medication usage, Demonstrated understanding of instructions, medications, Pt was receptive of discharge instructions/ teaching. No special radiology studies were completed. Property :Personal belongings accompany Pt. 16:43 Patient left the ED. srm Signatures: Joi Moraes, RN RN Serena Elizabeth, Laverne Coates RN RN pml Hafner, Jane, RN RN cjh Beck, Gabriela gjb Ross, Laura lr2 SHAKIRA
--- NOTE | 2016-11-21 17:43 | EDDOCDS ---
Physician Documentation [facility] Name: Jony Chambers Age: 26 yrs Sex: Male : 1990 Arrival Date: 11/19/2016 Time: 13:52 Bed I8 / 16 Private MD: Disposition: 11/19/16 16:01 Discharged to Home/Self Care. Impression: Cellulitis of left lower limb. - Condition is Stable. - Discharge Instructions: Cellulitis. - Medication Reconciliation, Local Pharmacy Hours form. - Follow up: Mahendra Campos; When: Keep your scheduled appointment on Monday; Reason: Recheck today's complaints, Continuance of care, To establish care. - Problem is an ongoing problem. - Symptoms are unchanged. - Notes: Return to the ED for worsening symptoms Historical: - Allergies: no known allergies; - Home Meds: 1. naproxen 500 mg Oral tab 1 tab 2 times per day 2. tramadol 50 mg Oral tab 2-3 time daily 3. Tylenol 500mg Oral 2 tabs every 8 hours as needed 4. Keflex Unknown Oral 1 cap 4 times per day (Last dose: 11/19/2016 11:00) 5. Bactrim DS 800-160 mg Oral tab 1 tab every 12 hours (Last dose: 11/19/2016 06:00) - PMHx: Hypertension; - PSHx: none; - Social history: Smoking status: Cigars No barriers to communication noted. - Family history: Not pertinent. - : The pt / caregiver states he / she is not on anticoagulants. Home medication list is obtained from the patient. - Exposure Risk Screening:: None identified. Vital Signs: 11/19 13:54 BP 149 / 84; Pulse 105; Resp 17; Temp 98.1(T); Pulse Ox 97% on R/A; Weight 122.92 kg / lr2 270.99 lbs (R); Height 5 ft. 6 in. (167.64 cm) (R); Pain 2/10; 16:42 BP 151 / 87; Pulse 86; Resp 18; Temp 98.7; Pulse Ox 97% on R/A; srm 13:54 Body Mass Index 43.74 (122.92 kg, 167.64 cm) lr2 MDM: 15:00 Misc. Nursing Order ordered. le 15:01 CBC with Diff Ordered. EDMS 15:01 ESR Ordered. EDMS 15:01 CRP Ordered. EDMS 15:51 Financial registration complete. [facility] 15:56 [facility] Payment Agreement was scanned into [employer] and attached to record. gjb 15:56 CBC with Diff Reviewed. le 15:56 CRP Reviewed. le 15:57 ESR Reviewed. le 22:14 T-Sheet-- Draft Copy was scanned into [employer] and attached to record. klr Signatures: Dispatcher [employer] EDLA Joi Moraes, RN Serena Hardy, CHIEF BUILDING INSPECTOR CHIEF BUILDING INSPECTOR Laverne FloresRN Sofia Calero RN RN cjh Beck, Gabriela gjb Redder, Kathie klr The chart was reviewed and I authenticate all verbal orders and agree with the evaluation and treatment provided.Attachments: 15:56 [facility] Payment Agreement [facility] 22:14 T-Sheet-- Draft Copy klr Chart Complete MTDD
--- NOTE | 2016-11-21 17:43 | EDDOCDS ---
Physician Documentation [facility] Name: Jony Chambers Age: 26 yrs Sex: Male : 1990 Arrival Date: 11/19/2016 Time: 13:52 Bed I8 / 16 Private MD: Disposition: 11/19/16 16:01 Discharged to Home/Self Care. Impression: Cellulitis of left lower limb. - Condition is Stable. - Discharge Instructions: Cellulitis. - Medication Reconciliation, Local Pharmacy Hours form. - Follow up: Mahendra Campos; When: Keep your scheduled appointment on Monday; Reason: Recheck today's complaints, Continuance of care, To establish care. - Problem is an ongoing problem. - Symptoms are unchanged. - Notes: Return to the ED for worsening symptoms Historical: - Allergies: no known allergies; - Home Meds: 1. naproxen 500 mg Oral tab 1 tab 2 times per day 2. tramadol 50 mg Oral tab 2-3 time daily 3. Tylenol 500mg Oral 2 tabs every 8 hours as needed 4. Keflex Unknown Oral 1 cap 4 times per day (Last dose: 11/19/2016 11:00) 5. Bactrim DS 800-160 mg Oral tab 1 tab every 12 hours (Last dose: 11/19/2016 06:00) - PMHx: Hypertension; - PSHx: none; - Social history: Smoking status: Cigars No barriers to communication noted. - Family history: Not pertinent. - : The pt / caregiver states he / she is not on anticoagulants. Home medication list is obtained from the patient. - Exposure Risk Screening:: None identified. Vital Signs: 11/19 13:54 BP 149 / 84; Pulse 105; Resp 17; Temp 98.1(T); Pulse Ox 97% on R/A; Weight 122.92 kg / lr2 270.99 lbs (R); Height 5 ft. 6 in. (167.64 cm) (R); Pain 2/10; 16:42 BP 151 / 87; Pulse 86; Resp 18; Temp 98.7; Pulse Ox 97% on R/A; srm 13:54 Body Mass Index 43.74 (122.92 kg, 167.64 cm) lr2 MDM: 15:00 Misc. Nursing Order ordered. le 15:01 CBC with Diff Ordered. EDMS 15:01 ESR Ordered. EDMS 15:01 CRP Ordered. EDMS 15:51 Financial registration complete. [facility] 15:56 [facility] Payment Agreement was scanned into [employer] and attached to record. gjb 15:56 CBC with Diff Reviewed. le 15:56 CRP Reviewed. le 15:57 ESR Reviewed. le 22:14 T-Sheet-- Draft Copy was scanned into [employer] and attached to record. klr Signatures: Dispatcher [employer] EDMA Joi Moraes, RN Serena Hardy, GLUING MACHINE OPERATOR GLUING MACHINE OPERATOR Laverne FloresRN Sofia Calero RN RN cjh Beck, Gabriela gjb Redder, Kathie klr The chart was reviewed and I authenticate all verbal orders and agree with the evaluation and treatment provided.Attachments: 15:56 [facility] Payment Agreement [facility] 22:14 T-Sheet-- Draft Copy klr Chart Complete MTDD
--- NOTE | 2016-11-21 17:44 | EDDOCDS ---
Nurse's Notes [facility] Name: Jony Chambers Age: 26 yrs Sex: Male : 1990 Arrival Date: 11/19/2016 Time: 13:52 Bed I8 / 16 Private MD: Diagnosis: Cellulitis of left lower limb Presentation: 11/19 13:55 Presenting complaint: Patient states: seen here Monday for cellulitis of left leg [facility] told to return if swelling got larger than marked areas and this morning noted enlargement of site. Adult Sepsis Screening: The patient does not have new or worsening altered mentation. Patient's respiratory rate is less than 22. Systolic blood pressure is greater than 100. Patient has a qSOFA score of 0- Negative Sepsis Screen. Suicide/Homicide risk assessment- the patient denies having any suicidal and/or homicidal ideations and does not present with any other emotional, behavioral or mental health complaints. 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 Transition of care: patient was not received from another setting of care. 13:55 Acuity: LAURA Level 3 [facility] 13:55 Method Of Arrival: Walkin/Carried/Asstd [facility] Triage Assessment: 13:57 General: Appears in no apparent distress, comfortable, Behavior is appropriate for age, [facility] cooperative, pleasant. Pain: Location: left leg Pain currently is 2 out of 10 on a pain scale. HIV screening NA for this visit Offered previously. Respiratory: Airway is patent Respiratory effort is even, unlabored, Respiratory pattern is regular, symmetrical. Derm: Skin is pink, warm & dry. Musculoskeletal: Range of motion intact in all extremities. Historical: - Allergies: no known allergies; - Home Meds: 1. naproxen 500 mg Oral tab 1 tab 2 times per day 2. tramadol 50 mg Oral tab 2-3 time daily 3. Tylenol 500mg Oral 2 tabs every 8 hours as needed 4. Keflex Unknown Oral 1 cap 4 times per day (Last dose: 11/19/2016 11:00) 5. Bactrim DS 800-160 mg Oral tab 1 tab every 12 hours (Last dose: 11/19/2016 06:00) - PMHx: Hypertension; - PSHx: none; - Social history: Smoking status: Cigars No barriers to communication noted. - Family history: Not pertinent. - : The pt / caregiver states he / she is not on anticoagulants. Home medication list is obtained from the patient. - Exposure Risk Screening:: None identified. Screenin:10 Screening information is obtained from the patient. Fall risk: No risks identified. pml Assistance ADL's: requires no assistance with activities of daily living. Abuse/DV Screen: The patient / caregiver reports he/she is: not in a situation that causes fear, pain or injury. Nutritional screening: No deficits noted. Advance Directives: Currently, there is no health care proxy. home support is adequate. Assessment: 15:10 General: Appears in no apparent distress, Behavior is appropriate for age, cooperative. pml Pain: Location: left leg Pain currently is 2 out of 10 on a pain scale. Quality of pain is described as tight. Neurological: Level of Consciousness is awake, alert, Oriented to person, place, time. Cardiovascular: Capillary refill < 3 seconds Edema is 1+ to left midcalf. Respiratory: Airway is patent Respiratory effort is even, unlabored, Respiratory pattern is regular, symmetrical. GI: Abdomen is non- distended obese. Derm: Skin is pink, warm & dry. redness and dusky to right mid calf, extending beyond regions marked on Monday, no drainage noted. 16:42 General: Appears in no apparent distress, Behavior is appropriate for age, cooperative. srm Pain: Pain currently is 2 out of 10 on a pain scale. Vital Signs: 13:54 BP 149 / 84; Pulse 105; Resp 17; Temp 98.1(T); Pulse Ox 97% on R/A; Weight 122.92 kg lr2 (R); Height 5 ft. 6 in. (167.64 cm) (R); Pain 2/10; 16:42 BP 151 / 87; Pulse 86; Resp 18; Temp 98.7; Pulse Ox 97% on R/A; srm 13:54 Body Mass Index 43.74 (122.92 kg, 167.64 cm) lr2 Vitals: 13:54 Log In Time: November 19, 2016 at 13:52. lr2 ED Course: 13:53 Patient visited by Yulisa Mariano. lr2 13:53 Patient moved to Waiting lr2 13:54 Patient moved to Pre RCE lr2 13:56 Triage Initiated [facility] 14:42 Patient moved to I8 / 16 [facility] 14:43 [facility] le 14:54 Patient visited by Serena Vincent FNP. le 14:54 Patient visited by Serena Vincent FNP. le 15:10 The patient / caregiver is instructed regarding the plan of care and ED course. Patient megha has correct armband on for positive identification. Placed in gown. Bed in low position. Call light in reach. Side rails up X2. 15:10 Inserted peripheral IV: 20gauge IV in left forearm and blood collected. Patient pml tolerated the procedure well. 15:12 Patient visited by Laverne Weaver RN. pml 15:56 [facility] Payment Agreement was scanned into [employer] and attached to record. gjb 16:01 Mahendra Campos is Referral Physician. le 16:42 Discontinued lock intact, bleeding controlled, pressure dressing applied, No srm redness/swelling at site. No procedures done that require assistance. 22:14 T-Sheet-- Draft Copy was scanned into [employer] and attached to record. klr Order Results: Lab Order: CBC with Diff; SPEC'M 11/19/16 15:08 Test: WHITE BLOOD COUNT; Value: 6.4; Range: 4.0-10.0; Units: K/mm3; Status: F Test: RED BLOOD COUNT; Value: 5.26; Range: 4.30-6.10; Units: M/mm3; Status: F Test: HEMOGLOBIN; Value: 14.2; Range: 14.0-18.0; Units: g/dl; Status: F Test: HEMATOCRIT; Value: 43.1; Range: 42.0-52.0; Units: %; Status: F Test: MEAN CORPUSCULAR VOLUME; Value: 82.1; Range: 80.0-96.0; Units: fl; Status: F Test: MEAN CORPUSCULAR HEMOGLOBIN; Value: 27.1; Range: 27.0-33.0; Units: pg; Status: F Test: MEAN CORPUSCULAR HGB CONC; Value: 33.0; Range: 32.0-36.5; Units: g/dl; Status: F Test: RED CELL DISTRIBUTION WIDTH; Value: 13.3; Range: 11.5-14.5; Units: %; Status: F Test: PLATELET COUNT, AUTOMATED; Value: 262; Range: 150-450; Units: k/mm3; Status: F Test: NEUTROPHILS %; Value: 68.9; Range: 36.0-66.0; Abnormal: Above high normal; Units: %; Status: F Test: LYMPH %; Value: 16.4; Range: 24.0-44.0; Abnormal: Below low normal; Units: %; Status: F Test: MONO %; Value: 8.0; Range: 0.0-5.0; Abnormal: Above high normal; Units: %; Status: F Test: EOS %; Value: 3.8; Range: 0.0-3.0; Abnormal: Above high normal; Units: %; Status: F Test: BASO %; Value: 0.4; Range: 0.0-1.0; Units: %; Status: F Test: LARGE UNSTAINED CELL %; Value: 2.5; Range: 0.0-4.0; Units: %; Status: F Test: NEUTROPHILS #; Value: 4.4; Range: 1.8-7.7; Units: K/mm3; Status: F Test: LYMPH #; Value: 1.2; Range: 1.5-6.5; Abnormal: Below low normal; Units: K/mm3; Status: F Test: MONO #; Value: 0.5; Range: 0.0-0.8; Units: K/mm3; Status: F Test: EOS #; Value: 0.2; Range: 0.0-0.50; Units: K/mm3; Status: F Test: BASO #; Value: 0.0; Range: 0.0-0.2; Units: K/mm3; Status: F Test: LARGE UNSTAINED CELL #; Value: 0.2; Range: 0.0-0.4; Units: K/mm3; Status: F Lab Order: ESR; SPEC'11/19/16 15:08 Test: ERYTHROCYTE SEDIMENTATION RATE; Value: 45; Range: 0-15; Abnormal: Above high normal; Units: mm/hr; Status: F Lab Order: CRP; SPEC'M 11/19/16 15:08 Test: C REACTIVE PROTEIN QUANTITATIV; Value: 8.96; Range: 0.00-0.30; Abnormal: Above high normal; Units: MG/DL; Status: F Outcome: 16:01 Discharge ordered by Provider. le 16:42 Discharge Assessment: Patient awake, alert and oriented x 3. No cognitive and/or srm functional deficits noted. Patient verbalized understanding of disposition instructions. patient administered narcotics - no. The following High Risk Discharge criteria are identified: None. Discharged to home ambulatory. Condition: good Condition: stable. Discharge instructions given to patient, Instructed on discharge instructions, follow up and referral plans. medication usage, Demonstrated understanding of instructions, medications, Pt was receptive of discharge instructions/ teaching. No special radiology studies were completed. Property :Personal belongings accompany Pt. 16:43 Patient left the ED. srm Signatures: Joi Moraes RN Serena Hardy FNP FNP le Quay, Paulina, RN RN pml Hafner, Jane, RN RN cjh Beck, Gabriela gjb Redder, Kathie klr Ross, Laura lr2 Chart Complete SHAKIRA
== END 2016-11-19 16:43 | disposition home or self-care (01) ==
LOC: M ED 13:52
DX: L03.116 Cellulitis of left lower limb (principal); I10 Essential (primary) hypertension; F17.200 Nicotine dependence, unspecified, uncomplicated; Z79.1 Long term (current) use of non-steroidal anti-inflammatories (NSAID); Z79.899 Other long term (current) drug therapy

== ENCOUNTER 2019-07-31 13:35 | Emergency (ER) | payer BC ==
[~2019-07-31] VITALS: Ht 167.6 cm; Wt 127.6 kg
[2019-07-31 15:08] LABS: BASO % 0.1 % (0.0-1.0); HEMATOCRIT 44.1 % (42.0-52.0); HEMOGLOBIN 14.6 g/dl (13.5-17.5); LYMPH # 1.2 10^3/uL (1.5-5.0); LYMPH % 8.9 % (24.0-44.0); MEAN CORPUSCULAR HEMOGLOBIN 27.6 pg (27.0-33.0); MEAN CORPUSCULAR HGB CONC 33.1 g/dl (32.0-36.5); MEAN CORPUSCULAR VOLUME 83.4 fl (80.0-96.0); MONO # 1.1 10^3/uL (0.0-0.8); MONO % 8.1 % (0.0-5.0); NEUTROPHILS # 11.3 10^3/uL (1.5-8.5); NEUTROPHILS % 82.4 % (36.0-66.0); PLATELET COUNT, AUTOMATED 214 10^3/uL (150-450); RED BLOOD COUNT 5.29 10^6/uL (4.30-6.10); WHITE BLOOD COUNT 13.7 10^3/uL (4.0-10.0)
--- NOTE | 2019-07-31 15:08 | REP ---
REASON: Pain and swelling. DEEP VENOUS ULTRASONOGRAPHY LEFT THIGH, RULE OUT DVT: TECHNIQUE: Multiple ultrasonographic images of the deep venous structures of the thigh were obtained from the common femoral vein to the popliteal vein along with Doppler interrogation and color flow Doppler images. FINDINGS: There is no abnormal echogenic material seen within any of the visualized deep venous structures that would suggest acute thrombosis. Coaptation is unremarkable throughout. Doppler interrogation shows an expected response to respiratory variability and augmentation. The color flow images show what appears to be a normal vascular pattern throughout. 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 IMPRESSION: There is no ultrasonographic evidence of deep venous thrombosis involving any of the visualized deep venous structures of the left thigh, as described above. Electronically Signed by Chris Andrew DO 07/31/2019 03:51 P
[2019-07-31 15:26] LABS: ERYTHROCYTE SEDIMENTATION RATE 9 mm/hr (0-15)
[2019-07-31 15:33] LABS: ALBUMIN 3.6 GM/DL (3.2-5.2); ALT/SGPT 39 U/L (12-78); BILIRUBIN,DIRECT 0.2 MG/DL (0.0-0.2); BILIRUBIN,TOTAL 0.9 MG/DL (0.2-1.0); BLOOD UREA NITROGEN 17 MG/DL (7-18); CALCIUM LEVEL 8.7 MG/DL (8.5-10.1); CARBON DIOXIDE LEVEL 26 MEQ/L (21-32); CHLORIDE LEVEL 101 MEQ/L (98-107); CREATININE FOR GFR 1.33 MG/DL (0.70-1.30); GLOMERULAR FILTRATION RATE > 60.0 (>60); GLUCOSE, FASTING 103 MG/DL (70-100); POTASSIUM SERUM 3.6 MEQ/L (3.5-5.1); SODIUM LEVEL 134 MEQ/L (136-145); TOTAL PROTEIN 7.2 GM/DL (6.4-8.2)
[2019-07-31] MEDS ORDERED: BACT800T5 PO (16:02)
[2019-07-31 16:55] VITALS: BP 153/83
== END 2019-07-31 17:26 | disposition home or self-care (01) ==
LOC: M ED 13:35
DX: L03.116 Cellulitis of left lower limb (principal); Z87.891 Personal history of nicotine dependence

== ENCOUNTER → 2019-08-14 | Outpatient (CLI) | payer BC ==
[~2019-08-14] MED LIST: BACT800T5 PO
[2019-08-14 13:20] LABS: BASO % 0.3 % (0.0-1.0); EOS # 0.2 10^3/uL (0.0-0.5); EOS % 2.8 % (0.0-3.0); HEMATOCRIT 42.9 % (42.0-52.0); HEMOGLOBIN 13.8 g/dl (13.5-17.5); LYMPH # 1.7 10^3/uL (1.5-5.0); LYMPH % 29.6 % (24.0-44.0); MEAN CORPUSCULAR HGB CONC 32.2 g/dl (32.0-36.5); MEAN CORPUSCULAR VOLUME 87.2 fl (80.0-96.0); MONO # 0.5 10^3/uL (0.0-0.8); NEUTROPHILS # 3.3 10^3/uL (1.5-8.5); NEUTROPHILS % 57.8 % (36.0-66.0); PLATELET COUNT, AUTOMATED 333 10^3/uL (150-450); RED BLOOD COUNT 4.92 10^6/uL (4.30-6.10); WHITE BLOOD COUNT 5.8 10^3/uL (4.0-10.0)
[2019-08-14 13:55] LABS: ALBUMIN 3.6 GM/DL (3.2-5.2); ALT/SGPT 44 U/L (12-78); BILIRUBIN,TOTAL 0.3 MG/DL (0.2-1.0); BLOOD UREA NITROGEN 15 MG/DL (7-18); CALCIUM LEVEL 8.7 MG/DL (8.5-10.1); CARBON DIOXIDE LEVEL 29 MEQ/L (21-32); CHLORIDE LEVEL 108 MEQ/L (98-107); CHOLESTEROL LEVEL 172 MG/DL (<200); CHOLESTEROL RISK RATIO 4.195 (<5); CREATININE FOR GFR 1.02 MG/DL (0.70-1.30); GLOMERULAR FILTRATION RATE > 60.0 (>60); GLUCOSE, FASTING 91 MG/DL (70-100); HDL CHOLESTEROL 41 MG/DL (>40); LDL CHOLESTEROL 95 MG/DL (<100); NON-HDL-C 131 MG/DL; POTASSIUM SERUM 4.5 MEQ/L (3.5-5.1); SODIUM LEVEL 142 MEQ/L (136-145); TRIGLYCERIDES LEVEL 179 MG/DL (<150)
== END ==
LOC: M LAB 12:32
PROVIDERS: ATTEND Family Medicine
DX: R03.0 Elevated blood-pressure reading, without diagnosis of hypertension (principal)

== ENCOUNTER → 2019-12-18 | Outpatient (CLI) | payer BC ==
[2019-12-18 14:16] LABS: FREE T4 0.98 NG/DL (0.76-1.46); THYROID STIMULATING HORMONE 7.51 uIU/ML (0.358-3.740)
== END ==
LOC: M LAB 12:48
PROVIDERS: ATTEND Family Medicine
DX: R94.6 Abnormal results of thyroid function studies (principal)